=== PATIENT | male | born 1945 | race Caucasian/White ===

== ENCOUNTER 2019-06-07 19:49 | Emergency (ER) | payer MEDICARE ==
[~2019-06-07] VITALS: Ht 180.3 cm; Wt 85.3 kg
[~2019-06-07 19:49] MED LIST: AMARYL2 MG PO; CEFDINIR300 MG PO; DOXYCYCLINE100 M3 PO; ELIQUIS5 M1 PO; FUROSEMIDE80 MG PO; HUMALOG100 UNIT/1 SQ; HYDROCODONE-AC1 EAC1 PO; HYDROCORTISONE10 MG PO; HYDROCORTISONE20 M2 PO; LISINOPRIL5 MG PO; LOPRESSOR25 MG PO; METFORMIN500 MG PO; Motrin,Rufen800 MG PO; POTASSIUM CHLO20 ME4 PO; VITAMIN D32000 UNI1 PO
[2019-06-07] MEDS ORDERED: CEPHALEXIN500 M1 PO (22:06)
== END 2019-06-07 22:22 | disposition home or self-care (01) ==
LOC: ED 19:49
DX: L03.116 Cellulitis of left lower limb (principal); E11.9 Type 2 diabetes mellitus without complications; I48.91 Unspecified atrial fibrillation; Z79.4 Long term (current) use of insulin; Z79.899 Other long term (current) drug therapy

== ENCOUNTER → 2019-08-15 | Outpatient (CLI) | payer MEDICARE ==
[~2019-08-15] MED LIST changes: +CEPHALEXIN500 M1 PO
== END | disposition home or self-care (01) ==
LOC: US 15:22
DX: R60.0 Localized edema (principal)